=== PATIENT | female | born 1985 | race Caucasian/White ===

== ENCOUNTER 2019-03-01 17:55 | Emergency (ER) | payer MEDICAID ==
[~2019-03-01] VITALS: Ht 149.9 cm; Wt 72.6 kg
--- NOTE | 2019-03-01 18:00 | NUR ---
Patient transferred to bed 1 via wheelchair by [facility]. Dr. Marcos and RN evaluating patient.
[2019-03-01 18:01] VITALS: BP 135/78
--- NOTE | 2019-03-01 18:24 | NUR ---
C/O HEADACHE/R ARM PAIN X2 DAYS. REPORTS PT HAS A HX OF STROKE IN 2018. EQUAL WEAKNESS NOTED TO BLE/BUE. NO FACIAL ASSYMETRY NOTED, PER PT , PT HAS HAD R SIDED RESIDUAL DEFECITS FROM STROKE IN 2018. VSS AT THIS TIME. PT ARROUSABLE TO HER NAME. PT APPEARS TO BE VERY TIRED, BUT IS ANSWERING QUESTIONS APPROPRIATELY. [facility] 15
--- NOTE | 2019-03-01 19:10 | NUR ---
REPORT GIVEN TO [facility] WE[facility]ER FOR TRANSFER OF CARE
--- NOTE | 2019-03-01 19:19 | NUR ---
PT STATES HEADACHE W/ LEFTG ARM PAIN STARTED AT 1000 THIS MORNING WHEN SHE WOKE UP; H/A 10/10 PAIN, LEFT ARM 8/10 PAIN. PT STATES SHE GETS H/A OFTEN BUT THE ARM PAIN IS A NEW THING. PT ACTING APPROPRIATLY, SPEAKING IN CLEAR AND COMPLETE SENTENCES, PT IS COMPLIANT TO COMMANDS. HAND BRICKMASON STRONG BL. SMILE SYMMETRICAL. AT BEDSIDE. HOB ELEVATED, AND POSITIONED FOR COMFORT.
[2019-03-01 19:25] LABS: APPEARANCE,URINE CLEAR (CLEAR); BILIRUBIN,URINE NEGATIVE (NEGATIVE); BLOOD, URINE NEGATIVE (NEGATIVE); COLOR,URINE YELLOW (YELLOW); LEUKOCYTE ESTERASE ,URINE NEGATIVE (NEGATIVE); NITRITE, URINE NEGATIVE (NEGATIVE); UGLUCOSE NEGATIVE (NEGATIVE)
[2019-03-01] MEDS ORDERED: MORPHINE SULFATE 4 MG/ML SYR IM ONE (19:50)
[2019-03-01] MEDS ORDERED: ALBUTEROL SULFATE/IPRATROPIU 3 ML SOL IH ONE (19:50)
[2019-03-01] MEDS ORDERED: ALBUTEROL 0.083% 2.5 MG/3 ML NEBU INH ONE (19:50)
--- NOTE | 2019-03-01 19:50 | NUR ---
RT AT BEDSIDE.
--- NOTE | 2019-03-01 20:05 | NUR ---
PT TO CT VIA IRASEMARRADHIKA BY TECH, AND RT TECH.
--- NOTE | 2019-03-01 20:20 | NUR ---
PT BACK FROM CT, PT ACTING APPROPRIATLY. PAIN MEDICATION ADMINISTRATION AT THIS TIME. SAFETY PRECAUTIONS IN PLACE.
[2019-03-01 21:05] VITALS: BP 116/79
--- NOTE | 2019-03-01 21:05 | NUR ---
Patient discharged with v/s stable. Written and verbal after care instructions given and explained. Patient alert, oriented and verbalized understanding of instructions. Ambulatory with steady gait. All questions addressed prior to discharge. ID band removed. Patient advised to follow up with PMD. Rx of PREDNISONE, MOTRIN, NORCO given. Patient educated on indication of medication including possible reaction and side effects. Opportunity to ask questions provided and answered.
== END 2019-03-01 21:05 | disposition home or self-care (01) ==
LOC: MED 17:55
DX: R51 Headache (principal); J45.909 Unspecified asthma, uncomplicated; R11.2 Nausea with vomiting, unspecified; M54.6 Pain in thoracic spine
CPT/HCPCS: 70450; 81003; 81025; 94640; 96372; 99284; J2270; J7613; J7620